=== PATIENT | female | born 1985 | race Caucasian/White ===

== ENCOUNTER 2023-07-06 08:36 | Inpatient (IN) | payer MEDICAID, OTHER ==
[~2023-07-06] VITALS: Ht 162.6 cm; Wt 75.3 kg
[~2023-07-06 08:36] MED LIST: ALBU2.5V10 INH; CELE40TA PO; FAMO40TA3 PO; SERO1TAB PO; TOPI25CA5 PO; TRAM50TA2 PO; VENTAER INH
[2023-07-06] MEDS ORDERED: VANCOMYCIN HCL 1,000 MG, VIAL MATE ADAPTER 1 EACH in D5W 250 ML IV ONE (11:05)
[2023-07-06] MEDS ORDERED: LR 1,000 ML IV SCH (11:15)
[2023-07-06] MEDS ORDERED: GABA600T4 PO (11:23)
[2023-07-06] MEDS ORDERED: BACTDSTA (11:23)
[2023-07-06] MEDS ORDERED: propofoL 200 MG/20 ML VIAL As Ordered ONE (11:52)
[2023-07-06] MEDS ORDERED: ROCURONIUM BROMIDE 50MG/5ML VIAL As Ordered ONE (11:52)
[2023-07-06] MEDS ORDERED: ONDANSETRON 4MG 2ML VIAL As Ordered ONE (11:52)
[2023-07-06] MEDS ORDERED: MIDAZOLAM INJ 2MG/2ML VIAL As Ordered ONE (11:52)
[2023-07-06] MEDS ORDERED: fentaNYL 100 MCG/2 ML INJECTION As Ordered ONE (11:52)
[2023-07-06] MEDS ORDERED: LIDOCAINE 2% 100MG/5ML SDV (FOR ANES.) As Ordered ONE (11:52)
[2023-07-06] MEDS ORDERED: LIDOCAINE 1% SDV 30ML VIAL As Ordered ONE (11:59)
[2023-07-06] MEDS ORDERED: GENTAMICIN 80 MG in IV 1 EA IV ONE (12:05)
[2023-07-06] MEDS ORDERED: PERCOCET 5MG/325MG TAB PO PRN ×2 (12:25)
[2023-07-06] MEDS ORDERED: ALBUTEROL 90 MCG/ACT 8GM HFA INHALER INH PRN (12:25)
[2023-07-06] MEDS ORDERED: ACETAMINOPHEN TAB 650MG DOSE (2X325MG) PO PRN (12:25)
[2023-07-06] MEDS ORDERED: ONDANSETRON 4MG 2ML VIAL IV PRN ×2 (12:25→15:35)
[2023-07-06] MEDS ORDERED: NS 1,000 ML IV SCH (12:25)
[2023-07-06] MEDS ORDERED: TOPI25TA10 PO (12:32)
[2023-07-06] MEDS ORDERED: HOME MED LIST COMPLETE! XX SCH (12:35)
[2023-07-06] MEDS ORDERED: FUROSEMIDE 100MG/10ML VIAL As Ordered ONE (12:46)
[2023-07-06] MEDS ORDERED: HYDROmorphone HCL 2MG/ML 1ML VIAL As Ordered ONE (13:11)
[2023-07-06] MEDS ORDERED: LABETALOL 100MG/20ML VIAL As Ordered ONE (13:51)
[2023-07-06] MEDS ORDERED: dexmedeTOMIDine (4MCG/ML)200MCG/50ML BTL (PRECEDEX) As Ordered ONE (14:43)
[2023-07-06] MEDS ORDERED: SUGAMMADEX SODIUM 500 MG/5 ML VIAL (BRIDION) As Ordered ONE (15:23)
[2023-07-06] MEDS ORDERED: KETOROLAC 60MG 2ML VIAL As Ordered ONE (15:28)
[2023-07-06] MEDS ORDERED: fentaNYL 100 MCG/2 ML INJECTION IV PRN (15:35)
[2023-07-06] MEDS ORDERED: oxyCODONE 5MG TAB PO PRN (15:35)
[2023-07-06 16:29] LABS: HEMOGLOBIN 13.1 g/dl (12.0-15.5); MEAN CORPUSCULAR VOLUME 90.9 fl (80.0-96.0); PLATELET COUNT, AUTOMATED 361 10^3/uL (150-450); RED BLOOD COUNT 4.51 10^6/uL (4.00-5.40); WHITE BLOOD COUNT 14.6 10^3/uL (4.0-10.0)
[2023-07-06 16:49] LABS: BLOOD UREA NITROGEN 10 MG/DL (9-23); CALCIUM LEVEL 8.3 MG/DL (8.5-10.1); CARBON DIOXIDE LEVEL 22 MMOL/L (20-31); CHLORIDE LEVEL 109 MMOL/L (98-107); CREATININE FOR GFR 1.05 MG/DL (0.55-1.30); GLOMERULAR FILTRATION RATE > 60.0 (>60); GLUCOSE, FASTING 160 MG/DL (60-100); POTASSIUM SERUM 4.3 MMOL/L (3.5-5.1); SODIUM LEVEL 139 MMOL/L (136-145)
[2023-07-06] MEDS: NICOTINE POLACRILEX 2 MG GUM PO PRN ×2 (17:50→21:10)
[2023-07-06 17:55] VITALS: BP 100/65; TEMP 97.5; O2SAT 94
[2023-07-06 18:55] VITALS: BP 117/72; TEMP 97.5; O2SAT 96
[2023-07-06] MEDS: DOCUSATE SODIUM 100MG CAPSULE PO SCH (21:10)
[2023-07-06 21:17] VITALS: BP 110/69; TEMP 97.7; O2SAT 95
[2023-07-06] MEDS: GENTAMICIN 80 MG in IV 1 EA IV SCH (23:30)
[2023-07-07] MEDS ORDERED: VANCOMYCIN HCL 1,000 MG, VIAL MATE ADAPTER 1 EACH in NS 250 ML IV SCH ×3
[2023-07-07 00:29] VITALS: BP 94/71; TEMP 98.1; O2SAT 97
[2023-07-07] MEDS: NICOTINE POLACRILEX 2 MG GUM PO PRN ×2 (03:44→08:04)
[2023-07-07 05:09] LABS: HEMATOCRIT 37.4 % (36.0-47.0); HEMOGLOBIN 12.2 g/dl (12.0-15.5); MEAN CORPUSCULAR HEMOGLOBIN 29.2 pg (27.0-33.0); MEAN CORPUSCULAR HGB CONC 32.6 g/dl (32.0-36.5); MEAN CORPUSCULAR VOLUME 89.5 fl (80.0-96.0); PLATELET COUNT, AUTOMATED 311 10^3/uL (150-450); RED BLOOD COUNT 4.18 10^6/uL (4.00-5.40); WHITE BLOOD COUNT 14.4 10^3/uL (4.0-10.0)
[2023-07-07 05:27] VITALS: BP 101/56; TEMP 98.1; O2SAT 97
[2023-07-07 05:31] LABS: BLOOD UREA NITROGEN 7 MG/DL (9-23); CALCIUM LEVEL 8.4 MG/DL (8.5-10.1); CARBON DIOXIDE LEVEL 23 MMOL/L (20-31); CHLORIDE LEVEL 110 MMOL/L (98-107); CREATININE FOR GFR 0.78 MG/DL (0.55-1.30); GLOMERULAR FILTRATION RATE > 60.0 (>60); GLUCOSE, FASTING 99 MG/DL (60-100); POTASSIUM SERUM 4.1 MMOL/L (3.5-5.1); SODIUM LEVEL 139 MMOL/L (136-145)
[2023-07-07] MEDS: GENTAMICIN 80 MG in IV 1 EA IV SCH (06:33)
[2023-07-07] MEDS ORDERED: KETOROLAC 30 MG/ML 1ML VIAL IV PRN (07:55)
[2023-07-07] MEDS: DOCUSATE SODIUM 100MG CAPSULE PO SCH (08:04)
[2023-07-07] MEDS ORDERED: FAMOTIDINE 20 MG TAB PO SCH (09:00)
[2023-07-07] MEDS ORDERED: PERCOCET PO (10:51)
[2023-07-07] MEDS ORDERED: KETO10TAB PO (10:51)
[2023-07-07] MEDS ORDERED: COLA100C5 PO (10:51)
== END 2023-07-07 12:35 | disposition home or self-care (01) | DRG 443 ==
LOC: M OR 10:30 → EDSEX 12:45 → M MS5PR 17:30
PROVIDERS: ADMIT Urology; ATTEND Urology
PROC: 0TP98DZ Removal of Intraluminal Device from Ureter, Via Natural or Artificial Opening Endoscopic (ICD-10-PCS; 2023-07-06)
PROC: 8E0W8CZ Robotic Assisted Procedure of Trunk Region, Via Natural or Artificial Opening Endoscopic (ICD-10-PCS; 2023-07-06)
PROC: 0TQ Urinary System, Repair (ICD-10-PCS; 2023-07-06)
PROC: 0T748DZ Dilation of Left Kidney Pelvis with Intraluminal Device, Via Natural or Artificial Opening Endoscopic (ICD-10-PCS; principal; 2023-07-06 12:45)
DX: N13.5 Crossing vessel and stricture of ureter without hydronephrosis (principal); N32.89 Other specified disorders of bladder; F32.A Depression, unspecified; Z88.0 Allergy status to penicillin; Z88.1 Allergy status to other antibiotic agents; Z88.8 Allergy status to other drugs, medicaments and biological substances; Z79.899 Other long term (current) drug therapy; Z20.822 Contact with and (suspected) exposure to COVID-19